=== PATIENT | male | born 1960 | race American Indian/Alaskan Native ===

== ENCOUNTER 2016-11-16 08:47 | Outpatient (CLI) | payer OTHER ==
--- NOTE | 2016-11-16 12:13 | Cat Scan Report ---
CT scan of abdomen and pelvis without IV contrast: History: Malignant neoplasm of prostate. Findings: Normal lung bases. No pleural pericardial effusion. Normal liver spleen pancreas and gallbladder. Normal adrenals. No calculi or masses the kidney parenchyma. Normal bladder. Normal size prostate which measures 3.2 x 2.8 cm. No free intraperitoneal fluid or air. No evidence of adenopathy. Bilateral inguinal hernia containing fat. Atherosclerotic abdominal aorta without aneurysm. Normal appendix. No evidence of diverticulitis. No bowel obstruction. No definite lytic or blastic lesions noted at the pelvis and lumbar spine with suspicion of hemangioma T12. Impression: No definite evidence of metastatic disease. Findings as detailed above.
--- NOTE | 2016-11-29 14:46 | Nuclear Medicine Report ---
NUCLEAR MEDICINE BONE SCAN: HISTORY: Prostate cancer. FINDINGS: There are no prior studies for comparison. There is a focus of high intensity increased uptake in the T12 vertebral body. There is increased activity in the lower cervical spine, probably C7 area. There is an area of increased activity in the midsternum. Increased activity is seen in the right ankle and distal aspect of the right great toe. Minimal increased activity is seen in the left ankle. Renal activity is seen bilaterally. IMPRESSION: 1. The most suspicious finding involves the T12 vertebral body, consistent with metastatic disease. 2. The areas of increased activity in the lower cervical spine and in the sternum are nonspecific. Correlation with C-spine radiograph is recommended. 3. Scattered areas of increased joint activity are consistent with arthritic/degenerative etiology. COMMENT: This study was presented for dictation on November 29, 2016.
== END 2016-11-16 08:48 | disposition home or self-care (01) ==
LOC: NM 08:47
PROVIDERS: ATTEND Urology
DX: C61 Malignant neoplasm of prostate (principal); K40.90 Unilateral inguinal hernia, without obstruction or gangrene, not specified as recurrent
CPT/HCPCS: 74176; 78306; A9503